=== PATIENT | female | born 1960 | race Caucasian/White ===

== ENCOUNTER 2018-06-26 06:12 | Emergency (ER) | payer BC, OTHER ==
[2018-06-26] MEDS ORDERED: Sodium Chloride 0.9% 1000 ML 1,000 ML IV STA (06:52)
[2018-06-26] MEDS ORDERED: Zofran 4 MG/2 ML VIAL IV ONE (06:52)
[2018-06-26] MEDS ORDERED: Hydromorphone 1 mg/ml Ampule IV ONE (06:52)
[2018-06-26 07:10] LABS: Appearance CLEAR (CLEAR); Bacteria RARE /HPF (NEGATIVE); Bilirubin NEGATIVE (NEGATIVE); Blood MODERATE Ery/ul (0-5); Epithelial Cells RARE /HPF (FEW); Glucose NEGATIVE (NEGATIVE); Hyaline Casts 0-2 /LPF (0-2); Ketones NEGATIVE (NEGATIVE); Leukocyte Esterase NEGATIVE (NEGATIVE); Mucus SLIGHT /HPF (NEGATIVE); Nitrite NEGATIVE (NEGATIVE); Protein,Urine Dip NEGATIVE (Negative); Specific Gravity 1.009 (1.005-1.025); Urobilinogen NEGATIVE mg/dL (0-1); WBC 0-2 /HPF (0-5)
[2018-06-26 07:13] LABS: ALBUMIN 4.6 g/dL (3.5-5.0); ALKALINE PHOSPHATASE 99 U/L (38-126); AMYLASE 86 U/L (30-110); ANION GAP 13.1 MEQ/L (5-15); BASOPHIL % 0.3 % (0.0-0.4); BLOOD UREA NITROGEN 11 mg/dL (7-17); Basophil (Absolute #) 0.04 (0-0.4); CHLORIDE 101 mmol/L (98-107); Calcium 9.8 mg/dL (8.4-10.2); Carbon Dioxide 27 mmol/L (22-30); Creatinine 1 0.71 mg/dL (0.52-1.04); Eosinophil % 1.5 % (0.00-5.0); Eosinophil (Absolute #) 0.18 (0-0.5); Glucose 100 mg/dL (74-106); Granulocytes % 66.4 % (36.0-66.0); Hemoglobin 14.4 gm/dl (12.0-16.0); Lymphocyte (Absolute #) 2.72 (1.0-4.6); Lymphocytes % 22.5 % (24.0-44.0); Mean Corpuscular Hemoglobin 31.1 pg (26-32); Mean Corpuscular Hgb Concent. 32.7 g/dl (32-36); Mean Platelet Volume 9.1 fl (6-9.5); Monocyte (Absolute #) 1.12 (0.0-1.3); Monocytes % 9.3 % (0.0-12.0); Platelet Count 403 K/mm3 (150-450); Potassium 4.1 mmol/L (3.5-5.1); Red Blood Count 4.63 M/mm3 (4.1-5.4); Red Cell Distribution Width 13.5 % (11.5-14.0); SGOT/AST 16 U/L (14-36); SGPT/ALT 16 U/L (0-35); SODIUM 137 mmol/L (137-145); White Blood Count 12.1 K/mm3 (4.0-10.5)
--- NOTE | 2018-06-26 07:26 | ERPHSYRPT ---
- History of Present Illness Time Seen by Provider: 06/26/18 07:16 Historian: patient Exam Limitations: no limitations Patient Subjective Stated Complaint: stabbing abdominal pain rating 10 on pain scale llq pain. hx diverticulosis since 2010 Triage Nursing Assessment: bowel sounds q 4 quads, pain reported llq abdomen for patst 6 hours. baseline 3 but increases to 10 on pain scale for 10-30 seconds at a time. non radiating pain. Physician History: The patient is a 58-year-old female with her complaining of a sudden onset of left lower quadrant abdominal pain around 1 AM last night. The pain has become worse. She denies nausea or vomiting. She denies diarrhea. The pain will intensify for a few seconds and then let up and this repeats itself. She had the same type of pain in 2010 when she was diagnosed with diverticulitis. She denies fever. Her past medical history significant for diverticulitis, HTN, anxiety, and high cholesterol. Her surgical history is significant for hysterectomy, right shoulder surgery, and tonsillectomy. Timing/Duration: today, intermittent, sudden, worse Activities at Onset: sleep Quality: sharpness, stabbing Abdominal Pain Onset Location: LLQ Pain Radiation: no radiation Severity of Pain-Max: severe Severity of Pain-Current: severe Modifying Factors: Improves With: nothing Associated Symptoms: denies symptoms, No diarrhea, No nausea, No vomiting Previous symptoms: same symptoms as today Allergies/Adverse Reactions: No Known Drug Allergies Allergy (Unverified 06/26/18 06:42) Home Medications: Aspirin 81 gm Chew [Baby Aspirin 81 mg Chew] 81 mg PO DAILY 06/26/18 [ History] Citalopram Hydrobromide 20 mg* [ceLEXa 20 MG] 20 mg PO DAILY 06/26/18 [ History] Lisinopril 10 mg [Zestril 10 MG] 10 mg PO DAILY 06/26/18 [History] Simvastatin 1 tab PO DAILY 06/26/18 [History] Hx Tetanus, Diphtheria Vaccination/Date Given: Yes Hx Influenza Vaccination/Date Given: No Hx Pneumococcal Vaccination/Date Given: No Immunizations Up to Date: Yes - Review of Systems Constitutional: No Fever, No Chills Eyes: No Symptoms Ears, Nose, & Throat: No Symptoms Respiratory: No Cough, No Dyspnea Cardiac: No Chest Pain, No Edema, No Syncope Abdominal/Gastrointestinal: Abdominal Pain, No Nausea, No Vomiting, No Diarrhea Genitourinary Symptoms: No Dysuria Musculoskeletal: No Back Pain, No Neck Pain Skin: No Rash Neurological: No Dizziness, No Focal Weakness, No Sensory Changes Psychological: No Symptoms Endocrine: No Symptoms Hematologic/Lymphatic: No Symptoms Immunological/Allergic: No Symptoms All Other Systems: Reviewed and Negative - Past Medical History Pertinent Past Medical History: Yes Neurological History: No Pertinent History ENT History: No Pertinent History Cardiac History: No Pertinent History Respiratory History: No Pertinent History Endocrine Medical History: No Pertinent History Musculoskeletal History: No Pertinent History GI Medical History: Diverticulosis History: No Pertinent History Psycho-Social History: Depression Female Reproductive Disorders: No Pertinent History - Past Surgical History Past Surgical History: Yes Cardiac: No Pertinent History Respiratory: No Pertinent History Musculoskeletal: Other Female Surgical History: Hysterectomy, Tubal Ligation - Social History Smoking Status: Current every day smoker How long have you smoked: 20 Exposure to second hand smoke: Yes Drug Use: none Patient Lives Alone: Yes - Female History Hx Last Menstrual Period: n/a Hx Now: No - Nursing Vital Signs Nursing Vital Signs: Initial Vital Signs Temperature 97.9 F 06/26/18 06:22 Pulse Rate 86 06/26/18 06:22 Respiratory Rate 18 06/26/18 06:22 Blood Pressure 131/79 06/26/18 06:22 O2 Sat by Pulse Oximetry 99 06/26/18 06:22 Pain Scale Pain Intensity 4 - Physical Exam General Appearance: moderate distress Eye Exam: PERRL/EOMI, eyes nml inspection Ears, Nose, Throat Exam: normal ENT inspection, pharynx normal, moist mucous membranes Neck Exam: normal inspection, non-tender, supple, full range of motion Respiratory Exam: normal breath sounds, lungs clear, No respiratory distress Cardiovascular Exam: regular rate/rhythm, normal heart sounds Gastrointestinal/Abdomen Exam: soft, tenderness (LLQ) Pelvic Exam: not done Rectal Exam: not done Back Exam: normal inspection, normal range of motion, No CVA tenderness, No vertebral tenderness Extremity Exam: normal inspection, normal range of motion, pelvis stable Neurologic Exam: alert, oriented x 3, cooperative, normal mood/affect, nml cerebellar function, sensation nml, No motor deficits Skin Exam: normal color, warm, dry SpO2 Interpretation: normal SpO2: 99 Oxygen Delivery: Room Air - CT Exams Abdomen/Pelvis CT Interpretation: Tele-radiologist Report (per Dr Anand), diverticulitis (new mild signoid diverticulitis) Ordered Tests: Active Orders 24 hr Category Date Time Status IV Insertion STAT Care 06/26/18 06:52 Active ABDOMEN AND PELVIS W/0 CONTRAS [CT] Stat Exams 06/26/18 06:51 Taken AMYLASE Stat Lab 06/26/18 06:59 Completed CBC W DIFF Stat Lab 06/26/18 06:59 Completed CMP Stat Lab 06/26/18 06:59 Completed CULTURE,URINE Stat Lab 06/26/18 06:59 Received Lactic Acid Stat Lab 06/26/18 06:50 Completed UA W/RFX UR CULTURE Stat Lab 06/26/18 06:59 Completed Medication Summary Discontinued Medications Generic Name Dose Route Start Last Admin Trade Name Freq PRN Reason Stop Dose Admin Hydromorphone HCl 0.5 mg 06/26/18 06:52 06/26/18 07:41 Hydromorphone 1 Mg/Ml Ampule IV 06/26/18 06:53 0.5 mg STAT ONE Administration Hydromorphone HCl Confirm 06/26/18 07:37 Hydromorphone 1 Mg/Ml Ampule Administered 06/26/18 07:38 Dose 1 mg .ROUTE .STK-MED ONE Sodium Chloride 1,000 mls @ 999 mls/hr 06/26/18 06:52 06/26/18 07:42 Sodium Chloride 0.9% 1000 Ml IV 06/26/18 07:52 999 mls/hr .Q1H1M STA Administration Sodium Chloride Confirm 06/26/18 07:36 Sodium Chloride 0.9% 1000 Ml Administered 06/26/18 07:37 Dose 1,000 mls @ ud .ROUTE .STK-MED ONE Ceftriaxone Sodium/Dextrose 1 g in 50 mls @ 100 mls/hr 06/26/18 08:10 08:12 Rocephin 1 Gm-D5w 50 Ml Bag IV 06/26/18 08:39 100 ml/hr STAT STA 100 mls/hr Administration Ceftriaxone Sodium/Dextrose Confirm 06/26/18 08:10 Rocephin 1 Gm-D5w 50 Ml Bag Administered 06/26/18 08:11 Dose 1 g in 50 mls @ ud IV .STK-MED ONE Ondansetron HCl 4 mg 06/26/18 06:52 06/26/18 07:42 Zofran 4 Mg/2 Ml Vial IV 06/26/18 06:53 4 mg STAT ONE Administration Ondansetron HCl Confirm 06/26/18 07:35 Zofran 4 Mg/2 Ml Vial Administered 06/26/18 07:36 Dose 4 mg .ROUTE .STK-MED ONE Lab/Rad Data: Laboratory Result Diagrams 06/26/18 06:59 06/26/18 06:59 Laboratory Results 06/26/18 06/26/18 06/26/18 Range/Units 06:59 06:59 06:59 WBC 12.1 H (4.0-10.5) K/mm3 RBC 4.63 (4.1-5.4) M/mm3 Hgb 14.4 (12.0-16.0) gm/dl Hct 44.0 (35-47) % MCV 95.0 (78-100) fl MCH 31.1 (26-32) pg MCHC 32.7 (32-36) g/dl RDW 13.5 (11.5-14.0) % Plt Count 403 (150-450) K/mm3 MPV 9.1 (6-9.5) fl Gran % 66.4 H (36.0-66.0) % Eos # (Auto) 0.18 (0-0.5) Absolute Lymphs (auto) 2.72 (1.0-4.6) Absolute Monos (auto) 1.12 (0.0-1.3) Lymphocytes % 22.5 L (24.0-44.0) % Monocytes % 9.3 (0.0-12.0) % Eosinophils % 1.5 (0.00-5.0) % Basophils % 0.3 (0.0-0.4) % Absolute Granulocytes 8.03 H (1.4-6.9) Basophils # 0.04 (0-0.4) Sodium 137 (137-145) mmol/L Potassium 4.1 (3.5-5.1) mmol/L Chloride 101 (98-107) mmol/L Carbon Dioxide 27 (22-30) mmol/L Anion Gap 13.1 (5-15) MEQ/L BUN 11 (7-17) mg/dL Creatinine 0.71 (0.52-1.04) mg/dL Estimated GFR > 60.0 ML/MIN Glucose 100 (74-106) mg/dL Lactic Acid (0.4-2.0) Calcium 9.8 (8.4-10.2) mg/dL Total Bilirubin 0.70 (0.2-1.3) mg/dL AST 16 (14-36) U/L ALT 16 (0-35) U/L Alkaline Phosphatase 99 (38-126) U/L Serum Total Protein 8.0 (6.3-8.2) g/dL Albumin 4.6 (3.5-5.0) g/dL Amylase 86 (30-110) U/L Urine Color YELLOW (YELLOW) Urine Appearance CLEAR (CLEAR) Urine pH 7.0 (5-6) Ur Specific [place] 1.009 (1.005-1.025) Urine Protein NEGATIVE (Negative) Urine Ketones NEGATIVE (NEGATIVE) Urine Blood MODERATE (0-5) Skyler/ul Urine Nitrite NEGATIVE (NEGATIVE) Urine Bilirubin NEGATIVE (NEGATIVE) Urine Urobilinogen NEGATIVE (0-1) mg/dL Ur Leukocyte Esterase NEGATIVE (NEGATIVE) Urine WBC (Auto) 0-2 (0-5) /HPF Urine RBC (Auto) 16-25 (0-2) /HPF U Hyaline Cast (Auto) 0-2 (0-2) /LPF U Epithel Cells (Auto) RARE (FEW) /HPF Urine Bacteria (Auto) RARE (NEGATIVE) /HPF Urine Mucus (Auto) SLIGHT (NEGATIVE) /HPF Urine Culture Reflexed YES (NO) Urine Glucose NEGATIVE (NEGATIVE) mg/dL 06/26/18 Range/Units 06:50 WBC (4.0-10.5) K/mm3 RBC (4.1-5.4) M/mm3 Hgb (12.0-16.0) gm/dl Hct (35-47) % MCV (78-100) fl MCH (26-32) pg MCHC (32-36) g/dl RDW (11.5-14.0) % Plt Count (150-450) K/mm3 MPV (6-9.5) fl Gran % (36.0-66.0) % Eos # (Auto) (0-0.5) Absolute Lymphs (auto) (1.0-4.6) Absolute Monos (auto) (0.0-1.3) Lymphocytes % (24.0-44.0) % Monocytes % (0.0-12.0) % Eosinophils % (0.00-5.0) % Basophils % (0.0-0.4) % Absolute Granulocytes (1.4-6.9) Basophils # (0-0.4) Sodium (137-145) mmol/L Potassium (3.5-5.1) mmol/L Chloride (98-107) mmol/L Carbon Dioxide (22-30) mmol/L Anion Gap (5-15) MEQ/L BUN (7-17) mg/dL Creatinine (0.52-1.04) mg/dL Estimated GFR ML/MIN Glucose (74-106) mg/dL Lactic Acid 0.9 (0.4-2.0) Calcium (8.4-10.2) mg/dL Total Bilirubin (0.2-1.3) mg/dL AST (14-36) U/L ALT (0-35) U/L Alkaline Phosphatase (38-126) U/L Serum Total Protein (6.3-8.2) g/dL Albumin (3.5-5.0) g/dL Amylase (30-110) U/L Urine Color (YELLOW) Urine Appearance (CLEAR) Urine pH (5-6) Ur Specific [place] (1.005-1.025) Urine Protein (Negative) Urine Ketones (NEGATIVE) Urine Blood (0-5) Skyler/ul Urine Nitrite (NEGATIVE) Urine Bilirubin (NEGATIVE) Urine Urobilinogen (0-1) mg/dL Ur Leukocyte Esterase (NEGATIVE) Urine WBC (Auto) (0-5) /HPF Urine RBC (Auto) (0-2) /HPF U Hyaline Cast (Auto) (0-2) /LPF U Epithel Cells (Auto) (FEW) /HPF Urine Bacteria (Auto) (NEGATIVE) /HPF Urine Mucus (Auto) (NEGATIVE) /HPF Urine Culture Reflexed (NO) Urine Glucose (NEGATIVE) mg/dL - Progress Progress: improved Progress Note: 06/26/18 07:29 Pt care discussed and care accepted from Dr Ochoa at 07:00. 06/26/18 08:21 Pt given dilaudid 1 mg, zofran 4 mg, and rocephin 1 gm by IV for mild sigmoid diverticulitis and is feeling better. Counseled pt/family regarding: lab results, diagnosis, need for follow-up, rad results - Departure Time of Disposition: 08:29 Departure Disposition: Home Clinical Impression: Diverticulitis of sigmoid colon Condition: Stable Critical Care Time: No Referrals: SHARRI FRANKLIN, [employer] AND COLLECTIONS ANALYST [Primary Care Provider] - Additional Instructions: You have a mild episode of sigmoid diverticulitis. You were given Dilaudid 1 mg , Zofran 4 mg, and Rocephin 1 g by IV in the ER. Take Flagyl 500 mg 3 times a day for 10 days. Take ciprofloxacin 500 mg 2 times a day for 10 days. Do not drink alcohol while taking the Flagyl. Follow-up with your primary medical doctor tomorrow. As Prescriptions: Ciprofloxacin [Cipro 500 MG] 1 tab PO BID #20 tablet Hydrocodone/APAP 5/325 [[place] 5/325 mg] 1 each PO Q4-6HPRN PRN #10 tablet MDD 6 PRN Reason: Pain Hydrocodone/APAP 5/325 [[place] 5/325 mg] 1 each PO Q4-6HPRN PRN #10 tablet MDD 6 PRN Reason: Pain Metronidazole 500 mg [Flagyl 500 MG] 500 mg PO TID #30 tablet
[2018-06-26] MEDS ORDERED: Zofran 4 MG/2 ML VIAL ONE (07:35)
[2018-06-26] MEDS ORDERED: Sodium Chloride 0.9% 1000 ML 1,000 ML ONE (07:36)
[2018-06-26] MEDS ORDERED: Hydromorphone 1 mg/ml Ampule ONE (07:37)
[2018-06-26] MEDS ORDERED: ROCEPHIN 1 Gm-D5w 50 ml Bag** 1 G/50 ML IVPB IV ONE (08:10)
[2018-06-26] MEDS ORDERED: ROCEPHIN 1 Gm-D5w 50 ml Bag** 1 G/50 ML IVPB IV STA (08:10)
--- NOTE | 2018-06-26 08:51 | XRAY ---
Indication: Left lower quadrant pain. Elevated WBC. History diverticulitis. Multiple contiguous axial images obtained through the abdomen and pelvis without contrast as ordered. Comparison: September 05, 2010. Lung bases demonstrate mild bibasilar dependent atelectasis. No infiltrate or effusion. Heart is not enlarged. Noncontrasted stomach and bowel loops appear nonobstructed. Mild scattered descending and sigmoid diverticulosis. Sigmoid colon demonstrates wall thickening with mild stranding favoring diverticulitis. No free fluid/air. Again previous hysterectomy. Remaining liver, gallbladder, pancreas, spleen, adrenal glands, kidneys, ureters, and bladder appear unremarkable for noncontrast exam. Mild aortoiliac calcifications without AAA. Osseous structures intact with mild spinal degenerative changes. No ventral or inguinal hernias. Impression: 1. Again colonic diverticulosis with new sigmoid acute diverticulitis. No perforation or complications. 2. Remaining CT abdomen/pelvis without contrast exam is negative. CT DI 9.05
[2018-06-26 09:13] VITALS: BP 142/80
[2018-06-26 09:21] VITALS: PULSE 72; O2SAT 97
== END 2018-06-26 09:19 | disposition home or self-care (01) ==
LOC: ED 06:12
DX: K57.32 Diverticulitis of large intestine without perforation or abscess without bleeding (principal); R10.32 Left lower quadrant pain; I10 Essential (primary) hypertension; Z79.899 Other long term (current) drug therapy
CPT/HCPCS: 36000; 36415; 74176; 80053; 81001; 82150; 83605; 85025; 87086; 96360; 96365; 96374; 96375; 99284; J0696; J1170; J2405

== ENCOUNTER 2018-08-08 10:16 | Day surgery (SDC) | payer OTHER ==
--- NOTE | 2018-08-05 10:21 | HP ---
DATE OF SURGERY: 08/08/2018 ANTICIPATED PROCEDURE: Colonoscopy. HISTORY OF PRESENT ILLNESS: History of diverticulitis six weeks ago second or third episode. She states she has had a hole in the colon before. She presents for colonoscopy. PAST MEDICAL HISTORY: ALLERGIES: NONE. MEDICATIONS: Simvastatin, lisinopril. PAST SURGICAL HISTORY: Hysterectomy, tonsillectomy, shoulder surgery. SOCIAL HISTORY: One pack per day. ETOH negative. FAMILY HISTORY: Negative. REVIEW OF SYSTEMS: Negative. PHYSICAL EXAMINATION: VITAL SIGNS: Normal. CHEST: Clear. COR: Regular. ABDOMEN: No palpable organomegaly or mass. IMPRESSION: Multiple episodes of diverticulitis. PLAN: Evaluation.
[~2018-08-08 10:16] MED LIST: Lactated Ringers 1,000 ML IV ONE; Lactated Ringers 1,000 ML IV SCH
[2018-08-08] MEDS ORDERED: Ketamine HCl 50 MG/ML IV ONE (10:17)
[2018-08-08] MEDS ORDERED: DIPRIVAN 200 MG/20 ML IV ONE (10:17)
--- NOTE | 2018-08-08 12:57 | OP ---
SURGERY DATE/TIME: 08/08/2018 1208 PREOPERATIVE DIAGNOSIS: Follow up after multiple episodes of left lower quadrant pain, recent diverticulitis. She states she has had a perforation at least twice in the past. PROCEDURE: Colonoscopy complete to cecum. SURGEON: Ok Muller M.D. ANESTHESIA: EMA Horta CRNA. COMPLICATIONS: None. CONDITION: Stable. INDICATION: A patient requiring evaluation. DESCRIPTION OF PROCEDURE: Taken to endoscopy. Left lateral decubitus position. Anal digital examination is satisfactory. Scope introduced. There was some narrowing in the mid sigmoid. There was certainly some spasm and there was still some erythema. It certainly looked like the place she recently had acute diverticulitis. The scope was able to be eased through here. With care and patience it was subsequently navigated up to the cecum. The very posterior window of the cecum was slightly dark and hazy but this was a reasonable study today as were asserting a little bit of pressure on the mid sigmoid area. Circumferential withdrawal. No mucosal lesions were noted. There was no suggestion of issue created by the scope. The scope withdrawn. The patient tolerated the procedure satisfactorily. Findings discussed with family. She will return back to the office in six weeks. 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 We will discuss options with her.
[2018-08-08 13:17] VITALS: O2SAT 100
[2018-08-08 13:34] VITALS: BP 136/68; PULSE 96
== END 2018-08-08 13:30 | disposition home or self-care (01) ==
LOC: SDC 10:16
PROVIDERS: ATTEND Surgery
DX: R10.32 Left lower quadrant pain (principal); K57.32 Diverticulitis of large intestine without perforation or abscess without bleeding; Z79.899 Other long term (current) drug therapy
CPT/HCPCS: J2704

== ENCOUNTER 2024-11-02 19:19 | Emergency (ER) | payer MEDICARE, OTHER ==
[2024-11-02 19:26] VITALS: BP 155/85; PULSE 90; RESP 16; TEMP 97.8; O2SAT 97
--- NOTE | 2024-11-02 19:33 | ERPHSYRPT ---
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 Patient states that she has a new 6-month-old dog who was excited of her arrival home and the dog jumped on the patient causing her to become off balance and she fell onto the left shoulder. Patient had consumed alcohol. Patient has no other complaints of pain or injury. She denies headache. She denies neck pain. She did not lose consciousness. Patient has a history of anxiety/depression, hypertension and hyperlipidemia. Occurred: just prior to arrival Method of Injury: fell Quality: aching Severity of Pain-Max: mild (To moderate) Severity of Pain-Current: mild Extremities Pain Location: shoulder: left Modifying Factors: Improves With: movement (Particularly raising the left arm/shoulder above her head worsens her pain) Associated Symptoms: none Allergies/Adverse Reactions: No Known Drug Allergies Allergy (Verified 11/02/24 19:36) Home Medications: Aspirin 81 gm Chew [Baby Aspirin 81 mg Chew] 81 mg PO DAILY 06/26/18 [History] Citalopram Hydrobromide 20 mg* [ceLEXa 20 MG] 20 mg PO EVENING MEAL 06/26/18 [History] Lisinopril 10 mg [Zestril 10 MG] 10 mg PO DAILY 06/26/18 [History] Simvastatin 1 tab PO DAILY 06/26/18 [History] Hx Tetanus, Diphtheria Vaccination/Date Given: Yes Hx Influenza Vaccination/Date Given: No Hx Pneumococcal Vaccination/Date Given: No Travel Risk - International Travel Have you traveled outside of the country in past 3 weeks: No - Emerging Infectious Disease Are you exhibiting symptoms associated with any current EIDs: No - Review of Systems Constitutional: No Symptoms Eyes: No Symptoms Ears, Nose, & Throat: No Symptoms Respiratory: No Symptoms Cardiac: No Symptoms Abdominal/Gastrointestinal: No Symptoms Genitourinary Symptoms: No Symptoms Musculoskeletal: Fall, Injury, Joint Pain (Left shoulder pain) Skin: No Symptoms Neurological: No Symptoms Psychological: No Symptoms Endocrine: No Symptoms Hematologic/Lymphatic: No Symptoms Immunological/Allergic: No Symptoms All Other Systems: Reviewed and Negative - Past Medical History Pertinent Past Medical History: Yes Neurological History: No Pertinent History ENT History: No Pertinent History Cardiac History: High Cholesterol, Hypertension Respiratory History: No Pertinent History Endocrine Medical History: No Pertinent History Musculoskeletal History: No Pertinent History GI Medical History: Diverticulosis History: No Pertinent History Psycho-Social History: Anxiety, Depression Female Reproductive Disorders: No Pertinent History - Past Surgical History Past Surgical History: Yes Neuro Surgical History: No Pertinent History Cardiac: No Pertinent History Respiratory: No Pertinent History Gastrointestinal: No Pertinent History Genitourinary: No Pertinent History Musculoskeletal: Orthopedic Surgery, Other Female Surgical History: Hysterectomy, Tubal Ligation Other Surgical History: Right shoulder surgery - Social History Drug Use: none - Nursing Vital Signs Nursing Vital Signs: Initial Vital Signs Temperature 97.8 F 11/02/24 19:25 Pulse Rate 90 11/02/24 19:25 Respiratory Rate 16 11/02/24 19:25 Blood Pressure 155/85 11/02/24 19:25 O2 Sat by Pulse Oximetry 97 11/02/24 19:25 Pain Scale Pain Intensity 10 - Physical Exam General Appearance: no apparent distress, alert, thin Eyes, Ears, Nose, Throat Exam: normal ENT inspection, moist mucous membranes Neck Exam: normal inspection, non-tender, supple, full range of motion Cardiovascular/Respiratory Exam: chest non-tender, no respiratory distress Abdominal Exam: non-tender (Main) Back Exam: normal inspection, normal range of motion, No CVA tenderness (Comes in), No vertebral tenderness Shoulder Exam: normal inspection, bone tenderness (Tenderness to palpation anterior aspect of the proximal humerus/humeral head area), limited ROM, soft tissue tenderness (To palpation tissue overlying the level of the humeral head/proximal humerus), No deformity Elbow/Forearm Exam: normal inspection, non-tender, no evidence of injury, normal ROM Wrist Exam: normal inspection, non-tender, no evidence of injury, normal ROM Hand Exam: normal inspection, non-tender, no evidence of injury, normal ROM Neuro/Tendon Exam: normal sensation, no evidence tendon injury Mental Status Exam: alert, oriented x 3, cooperative Skin Exam: normal color, warm, dry SpO2 Interpretation: normal SpO2: 97 O2 Delivery: Room Air - Course Nursing assessment & vital signs reviewed: Yes Ordered Tests: Active Orders 24 hr Category Date Time Status Sling Application STAT Care 11/02/24 21:00 Active SHOULDER Stat Exams 05/18/25 19:39 Taken - Progress Progress: unchanged, re-examined Progress Note: 11/02/24 20:55 I medical decision making and the assignment of low complexity to this patient's medical issue today is based on review of the patient's past medical history, review of the patient's medication list, reviewed patient drug allergy list, history present illness and physical findings on examination. The workup in this patient includes x-ray of the left shoulder. Differential diagnosis includes but is not limited to contusion left shoulder, fracture left shoulder, dislocation left shoulder. I interpreted the preliminary report of the patient's left shoulder x-ray. There is no fracture or dislocation of the left shoulder area. I see no fracture of the scapula or the visible portions of the left clavicle. In the area of the patient's localized tenderness, I see no acute pathology. However, the patient is having localized pain and cannot fully abduct her left upper extremity/shoulder. Therefore, we will place her in a sling and have her follow-up tomorrow with the [facility] orthopedic clinic for further evaluation and management. I am not providing her with any narcotic medication because she has been consuming alcohol. Counseled pt/family regarding: diagnosis, need for follow-up, rad results Medical Desision Making - Independent Historian Additional History obtained from: Family - Diagnostic Testing Diagnostic test were ordered, analyzed, and reviewed by me: Yes Radiological Interpretation: Interpreted by me - Risk of complications Low Risk: Low risk of morbidity from additional dx testing or treatment - Departure Departure Disposition: Home Clinical Impression: Fall with injury, Left shoulder pain Condition: Stable Critical Care Time: No Referrals: SHARRI FRANKLIN NP [Primary Care Provider, UNKNOWN] - Follow up/PCP as directed SHARRI CARTY NP [NON-STAFF PHY W/O PRIVILEGES, UNKNOWN] - Follow up/PCP as directed Additional Instructions: Keep the left upper extremity in the sling for comfort. May remove the sling to shower. Ice pack to the tender area 2-3 times a day. Use Tylenol and ibuprofen for pain control if there are no contraindications to do so. Follow-up tomorrow at 8 AM, 11/03/2024, at the [facility] orthopedic clinic. It is a walk-in clinic. You do not need an appointment to be evaluated.
--- NOTE | 2024-11-03 08:47 | XRAY ---
Indication: Pain following fall. Comparison: None 3 view left shoulder demonstrates osteopenia, mild AC degenerative changes, and 7 mm soft tissue foreign body proximal arm. No acute bony, articular, or soft tissue abnormalities.
== END 2024-11-02 21:09 | disposition home or self-care (01) ==
LOC: ED 19:19
DX: S49.92XA Unspecified injury of left shoulder and upper arm, initial encounter (principal); W01.0XXA Fall on same level from slipping, tripping and stumbling without subsequent striking against object, initial encounter; M25.512 Pain in left shoulder; I10 Essential (primary) hypertension; Z79.899 Other long term (current) drug therapy; Z72.0 Tobacco use
CPT/HCPCS: 73030; 99283

== ENCOUNTER 2025-02-27 06:49 | Day surgery (SDC) | payer MEDICARE, OTHER ==
[2025-02-27] MEDS ORDERED: CEFAZOLIN SODIUM ONE (07:10)
[2025-02-27] MEDS: Lactated Ringers 1,000 ML IV SCH (07:15)
[2025-02-27 07:31] VITALS: RESP 18
[2025-02-27] MEDS ORDERED: Versed 2 MG/2 ML Injection ONE (08:35)
[2025-02-27] MEDS ORDERED: SUBLIMAZE 100 MCG/2 ML ONE (08:35)
[2025-02-27] MEDS ORDERED: DEXMEDETOMIDINE 80 MCG/20ML-NS IV ONE (08:36)
[2025-02-27] MEDS ORDERED: Xylocaine-Mpf 2% 5 Ml Vial ONE (08:36)
[2025-02-27] MEDS ORDERED: ROCURONIUM BROMIDE IV ONE (08:36)
[2025-02-27] MEDS ORDERED: Zofran 4 MG/2 ML VIAL ONE (08:36)
[2025-02-27] MEDS ORDERED: Epinephrine Preservative Free 1 MG/ML ONE ×3 (08:37→10:01)
[2025-02-27] MEDS ORDERED: propofoL IV ONE (08:41)
[2025-02-27] MEDS ORDERED: Epinephrine Preservative Free 1 MG/ML IJ ONE (10:00)
[2025-02-27] MEDS ORDERED: Lactated Ringers 1,000 ML IV ONE (10:08)
[2025-02-27 11:25] VITALS: BP 161/85; PULSE 86; TEMP 97.6; O2SAT 98
--- NOTE | 2025-03-02 09:46 | OP ---
SURGERY DATE/TIME: 02/27/2025 [id number] PREOPERATIVE DIAGNOSES: Impingement syndrome left shoulder, acromioclavicular osteoarthritis left shoulder. POSTOPERATIVE DIAGNOSIS: Full-thickness tear left rotator cuff with impingement syndrome, near complete tear biceps tendon, and degenerative tear of the glenoid labrum. PROCEDURE: Arthroscopy of the left shoulder with rotator cuff repair, subacromial decompression, biceps tenotomy, and debridement of the glenoid labrum. SURGEON: Santo Gaxiola II, DO. ANESTHESIA: General, with a block for postop pain control. DESCRIPTION OF PROCEDURE AND FINDINGS: The patient was identified, and informed consent was obtained. The patient was taken to the operative suite and placed into the supine position on the operating table where the block was administered. Following this, the general anesthetic was administered and the patient was then placed into the right lateral decubitus position with the left side up. Axillary role was placed. Bony prominences were padded. The shoulders were rotated back about 20 degrees, and the carpio bag was then inflated. At this point then, the right upper extremity was prepped and draped in the usual sterile fashion and placed into the Star abduction traction device with 20 degrees of forward flexion, 40 degrees of lateral opening, and about 10 pounds of longitudinal traction. A standard time-out was taken. Shoulder was marked for bony landmarks, and a standard posterior portal was created with an 11 blade. The trocar and cannula were then placed in the joint. The joint was then distended with the arthroscopic pump. An 18-gauge spinal needle identified the level for the anterior portal. This was created with an 11 blade. The glenohumeral joint was now inspected in a systematic fashion. There humeral head and glenoid fossa were noted to be intact. The patient was noted to have some degenerative tearing of the anterior and superior labrum. Posterior labrum was noted to be intact. The patient was also noted to have a near complete tear of the biceps tendon with a split tear also noted in the biceps and a biceps tenotomy was then performed with the shaver and the biters. The labrum was then debrided. Our attention was then turned to the glenohumeral ligaments which were noted to be intact. The infraglenoid pouch had no loose bodies or significant synovial hypertrophy. There was a little mild synovial hypertrophy superiorly which was treated with a wand. Inspection of the rotator cuff showed the subscapularis to be intact. There was a full-thickness tear with a crescent shape of the supraspinatus. The infraspinatus and teres were noted to be intact. At this point, the rotator cuff was prepared from the articular side, and an 18-gauge spinal needle was placed to identify the level for the lateral working portal. This was then created with an 11 blade. At this point, the scope was then placed into the bursal space and bursoscopy was performed. The crescent tear of the rotator cuff tear was easily identified. It was grasped with the grasping forceps and mobilized very nicely. At this point, portion of the bursa was removed for visualization. The undersurface of the acromion was denuded of soft tissue and about 2 bur thicknesses of acromion was resected anteriorly, tapering this to a smooth transition posteriorly. The acromioclavicular joint was inspected. There was some mild trumpeting and incidental coplaning of the distal clavicle was accomplished but it was deemed that the patient did not need a Lizbeth procedure. At this point, the bony bed for the rotator cuff was prepared. The edges of the rotator cuff was then debrided giving a good fresh bleeding edge. Rotator cuff was easily mobilized to the anatomic footplate. At this point, utilizing an inverted mattress FiberTape with a 2.0 FiberWire ripstop stitch. The rotator cuff was repaired with a 4.75 SwiveLock anchor. An excellent watertight seal of the rotator cuff was noted. At this point, the shoulder was reinspected and no further pathology identified. The instrumentation was removed and the portal sites closed with interrupted 4-0 nylon suture. Adaptics, 4 x 4s, and a sterile dressing was applied. The patient was placed into an UltraSling, transferred to the cart, and taken to the recovery room in satisfactory condition, having tolerated the procedure well.
== END 2025-02-27 11:40 | disposition home or self-care (01) ==
LOC: SDC 06:49
PROVIDERS: ATTEND Orthopaedic Surgery
DX: M75.112 Incomplete rotator cuff tear or rupture of left shoulder, not specified as traumatic (principal); M25.512 Pain in left shoulder; M75.42 Impingement syndrome of left shoulder; M19.012 Primary osteoarthritis, left shoulder; S46.212A Strain of muscle, fascia and tendon of other parts of biceps, left arm, initial encounter